=== PATIENT | female | born 1955 | race Caucasian/White ===

== ENCOUNTER 2023-08-27 09:38 | Emergency (ER) | payer MEDICARE, MEDICAID ==
[~2023-08-27] VITALS: Ht 167.6 cm; Wt 68.0 kg
[2023-08-27] MEDS ORDERED: BENA40TA8 PO (10:04)
[2023-08-27] MEDS ORDERED: REPA2TAB10 PO (10:04)
[2023-08-27] MEDS ORDERED: METO100T14 PO (10:04)
[2023-08-27] MEDS ORDERED: SEMA1PEN SQ (10:04)
[2023-08-27] MEDS ORDERED: ATOR10TA PO (10:04)
[2023-08-27] MEDS ORDERED: NAPR25PO2 PO (10:04)
[2023-08-27] MEDS ORDERED: NAPR-1009 PO (10:04)
[2023-08-27] MEDS ORDERED: METF-442 PO (10:04)
[2023-08-27] MEDS ORDERED: ONDANSETRON 4 MG/2 ML VIAL IV ONE ×2 (10:15→16:15)
[2023-08-27] MEDS ORDERED: KETOROLAC TROMETHAMINE 15 MG INJ IVP ONE (10:15)
[2023-08-27] MEDS ORDERED: KETOROLAC TROMETHAMINE 15 MG INJ ONE (10:30)
[2023-08-27] MEDS ORDERED: ONDANSETRON 4 MG/2 ML VIAL ONE ×2 (10:30→16:28)
[2023-08-27 10:36] LABS: EOSINOPHILS # (AUTO) 0.1 K/uL (0.0-0.7); MEAN CORPUSCULAR VOLUME 84.8 fL (75.5-95.3)
[2023-08-27 10:47] LABS: BASOPHILS # (AUTO) 0.1 K/UL (0.0-0.2); BASOPHILS % (AUTO) 0.8 % (0.0-2.0); EOSINOPHILS % (AUTO) 0.6 % (0.0-7.0); HEMATOCRIT 38.7 % (31.2-41.9); HEMOGLOBIN 13.5 g/dL (10.9-14.3); LYMPHOCYTES # (AUTO) 1.9 K/uL (0.8-4.8); LYMPHOCYTES % (AUTO) 15.9 % (20.5-51.5); MEAN CORPUSCULAR HEMOGLOBIN 29.7 uug (24.7-32.8); MEAN CORPUSCULAR HGB CONC 35 g/dL (32.3-35.6); MONOCYTES # (AUTO) 0.8 K/uL (0.1-1.30); MONOCYTES % (AUTO) 6.5 % (0.0-11.0); NEUTROPHILS % (AUTO) 76.2 % (38.5-71.5); PLATELET COUNT (AUTO) 317 K/uL (179-408); RED BLOOD CELL COUNT(AUTO) 4.57 MIL/uL (3.63-4.92); RED CELL DISTRIBUTION WIDTH 14.9 % (12.3-17.7); WHITE BLOOD COUNT (AUTO) 11.8 K/uL (3.8-11.8)
[2023-08-27 10:49] LABS: CALCIUM 10.4 mg/dL (8.5-10.1); CARBON DIOXIDE 22 mmol/L (21-32); CHLORIDE 100 mmol/L (98-107); CREATININE 0.9 mg/dL (0.6-1.3); GLUCOSE 170 mg/dL (74-106); POTASSIUM 4.1 mmol/L (3.5-5.1); SODIUM SERUM 135 mmol/L (136-145); UREA NITROGEN, BLOOD 16 mg/dL (7-18)
[2023-08-27 10:53] LABS: DIFFERENTIAL COMMENT 1
[2023-08-27 11:02] LABS: ALANINE AMINOTRANSFERASE 11 U/L (14-59); ALBUMIN 4.2 g/dL (3.4-5.0); ALKALINE PHOSPHATASE 103 U/L (50-136); ASPARTATE AMINOTRANSFERASE 5 U/L (15-37); BILIRUBIN,DIRECT 0.2 mg/dL (0.0-0.2); BILIRUBIN,TOTAL 1.3 mg/dL (0.2-1.0); NT-PRO BNP 129 pg/mL (0-125)
[2023-08-27] MEDS ORDERED: HYDROMORPHONE 1 MG/1 ML DISP.SYRIN ONE (12:06)
[2023-08-27] MEDS ORDERED: HYDROMORPHONE 1 MG/1 ML DISP.SYRIN IV ONE (12:15)
[2023-08-27] MEDS ORDERED: FENTANYL CITRATE 100 MCG/2 ML AMPUL IV ONE (16:15)
[2023-08-27] MEDS ORDERED: FENTANYL CITRATE 100 MCG/2 ML AMPUL ONE (16:28)
[2023-08-27] MEDS ORDERED: HYDR4TAB4 PO (17:45)
[2023-08-27] MEDS ORDERED: PRED50TA PO (17:45)
[2023-08-27] MEDS ORDERED: KETOROLAC TROMETHAMINE 30 MG INJ IM ONE (18:30)
[2023-08-27] MEDS ORDERED: KETOROLAC TROMETHAMINE 30 MG INJ ONE (18:31)
[2023-08-27 18:41] VITALS: BP 144/71; O2SAT 95
== END 2023-08-27 18:42 | disposition home or self-care (01) ==
LOC: ER 09:42
DX: M54.16 Radiculopathy, lumbar region (principal); E11.9 Type 2 diabetes mellitus without complications; R07.89 Other chest pain; M25.561 Pain in right knee; Z79.899 Other long term (current) drug therapy
CPT/HCPCS: 99285; 72131; 96374; 96375; 71045; 80076; 80048; 83880; 85025; 85379; 85651; 85730; 84484; 36415; 93005; 73562; 72192; 96376; 96372; J1885 ×2; J2405 ×2; J3010; J1170; A4663